=== PATIENT | male | born 1985 | race African-American/Black ===

== ENCOUNTER 2023-07-31 20:02 | Emergency (ER) | payer OTHER, SELFPAY ==
[2023-07-31 20:13] VITALS: BP 135/79; PULSE 91; RESP 17; TEMP 36.7; O2SAT 98; BMI 26.9
--- NOTE | 2023-07-31 20:18 | DI.RAD.S_ITS ---
PROCEDURE: XR ANKLE RT MIN 3V INDICATIONS: pain s/p fall TECHNIQUE: 3 views of the ankle were acquired. COMPARISON: None. FINDINGS: Bones: No fractures or dislocations. Ankle mortise is normally aligned. No suspicious bony lesions. Prominent superior projection of the distal dorsal aspect of the talus. Soft tissues: Moderate tibiotalar joint effusion. Achilles tendon appears normal. Moderate swelling about the ankle. IMPRESSION: Prominent superior projecting of the distal dorsal aspect of the talus. 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 Correlate with point tenderness. Dictated by: Bam Mason M.D. on 07/31/2023 at 20:46 Approved by: Bam Mason M.D. on 07/31/2023 at 20:49
--- NOTE | 2023-07-31 20:43 | PC.NURSE ---
Dr. Monson at bedside with pt
--- NOTE | 2023-07-31 20:50 | DI.RAD.S_ITS ---
PROCEDURE: XR FOOT RT MIN 3V INDICATIONS: dorsum of midfoot and base of 5th pain TECHNIQUE: 3 views of the foot were acquired. COMPARISON: [facility], [place], XR ANKLE RT MIN 3V, 07/31/2023, 20:20. FINDINGS: Bones: Avulsion fracture of the dorsal navicular bone. Talar beak. Fracture of the medial base of the cuboid bone. Soft tissues: Moderate tibiotalar joint effusion. Achilles tendon appears normal. Swelling of the hindfoot and midfoot. IMPRESSION: Avulsion fracture of the dorsal navicular bone. Fracture of the medial base of the cuboid bone. Please see ankle series for further discussion. Dictated by: Bam Mason M.D. on 07/31/2023 at 21:38 Approved by: Bam Mason M.D. on 07/31/2023 at 21:41
--- NOTE | 2023-07-31 20:50 | ED.LOWEXIN ---
HPI - Extremity Injury (Lower) General Chief Complaint: Extremity Injury, Lower Stated Complaint: Rt ankle injury Time Seen by Provider: 07/31/23 20:19 Source: patient Mode of arrival: Wheelchair History of Present Illness HPI Narrative: 37-year-old male here for evaluation of a right ankle injury. Patient states he was playing basketball prior to arrival. He states that he landed and rolled his ankle. Since that time has had pain and swelling on the outside of the ankle and the foot. Very difficult time bearing weight. No other injuries from the event. He is injured his ankle in the past but it was many years ago. No other injuries from the event. Related Data Allergies Allergy/AdvReac Type Severity Reaction Status Date / Time No Known Drug Allergies Allergy Verified 07/31/23 20:13 Review of Systems Constitutional Constitutional: Reports system reviewed and no additional complaints, except as documented Musculoskeletal Musculoskeletal: Reports system reviewed and no additional complaints, except as documented Integumentary/Breasts Skin/Breast: Reports system reviewed and no additional complaints, except as documented Neurologic Neurologic: Reports system reviewed and no additional complaints, except as documented Patient History Social History Smoking Status: Never smoker Smoking Status: Never smoker alcohol intake frequency: holidays/special occasions only Substance Use Type: does not use Exam Initial Vital Signs Initial Vital Signs: Vital Signs Temperature 98.1 F 07/31/23 20:13 Pulse Rate 91 H 07/31/23 20:13 Respiratory Rate 17 07/31/23 20:13 Blood Pressure 135/79 07/31/23 20:13 Pulse Oximetry 98 07/31/23 20:13 Oxygen Delivery Method Room Air 07/31/23 20:13 Cardio Pulses: dorsalis pedis present on the right Skin Other: Bruising to the dorsum and lateral aspect of the foot Neuro Sensory Exam: no sensory deficits noted Extrem Other: No proximal fibula tenderness. Does have tenderness along the lateral malleolus, the anterior tibiotalar joint tenderness along the dorsum of the midfoot and along the lateral aspect of the right mid foot. Achilles tendon is intact. Medial malleolus is unremarkable. Procedures Orthopedic Splinting/Casting Injury #1: Side: right Lower Extremity Injury Location: ankle and foot Lower Extremity Immobilizer: posterior splint Other Orthopedic Equipment: crutches Post splinting neuro exam: no change Post splinting vascular exam: no change Placed by: Nursing Course Orders Ordered: ED Orders 07/31/23 20:18 XR ankle RT min 3V Stat 07/31/23 20:50 XR foot RT min 3V Stat Discontinued Medications Hydrocodone Bitart/Acetaminophen (Hydrocodone/Acet 5/325 Prepack) 1 bottle MISC DIRECTED ONE Stop: 07/31/23 22:19 Last Admin: 07/31/23 22:24 Dose: 1 bottle Documented By: WONG Hydrocodone Bitart/Acetaminophen (Hydrocodone/Acet 5/325 Tablet) 1 tab PO NOW ONE Stop: 07/31/23 22:19 Last Admin: 07/31/23 22:24 Dose: 1 tab Documented By: WONG Vital Signs Vital signs: Vital Signs - 8 hr 07/31/23 20:13 Temperature 98.1 F Pulse Rate 91 H Respiratory Rate 17 Blood Pressure 135/79 Pulse Oximetry 98 Oxygen Delivery Method Room Air MDM - Extremity Injury (Lower) Imaging Data Extremity x-ray #1: Radiologist's Impression: PROCEDURE: XR ANKLE RT MIN 3V INDICATIONS: pain s/p fall TECHNIQUE: 3 views of the ankle were acquired. COMPARISON: None. FINDINGS: Bones: No fractures or dislocations. Ankle mortise is normally aligned. No suspicious bony lesions. Prominent superior projection of the distal dorsal aspect of the talus. Soft tissues: Moderate tibiotalar joint effusion. Achilles tendon appears normal. Moderate swelling about the ankle. IMPRESSION: Prominent superior projecting of the distal dorsal aspect of the talus. 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 Correlate with point tenderness. Extremity x-ray #2: Radiologist's Impression: PROCEDURE: XR FOOT RT MIN 3V INDICATIONS: dorsum of midfoot and base of 5th pain TECHNIQUE: 3 views of the foot were acquired. COMPARISON: [facility], , XR ANKLE RT MIN 3V, 07/31/2023, 20:20. FINDINGS: Bones: Avulsion fracture of the dorsal navicular bone. Talar beak. Fracture of the medial base of the cuboid bone. Soft tissues: Moderate tibiotalar joint effusion. Achilles tendon appears normal. Swelling of the hindfoot and midfoot. IMPRESSION: Avulsion fracture of the dorsal navicular bone. Fracture of the medial base of the cuboid bone. Please see ankle series for further discussion. MDM Narrative Medical decision making narrative: Unsure whether or not the avulsion fractures noted on the x-rays are new or old however he is tender over all these locations. Because of this he was placed in a posterior splint. Will make him nonweightbearing. He was given crutches. He was given the copies of the x-rays on a CD so that he can follow up with his medical department on the [facility]. He was given care instructions and return precautions. He expressed understanding and agreement with plan. Discharge Plan Departure Patient Disposition: Home Clinical Impression: Foot fracture, right Instructions: DI for Foot Fracture, How to Take Care of Your Splint Activity Restrictions/Additional Instructions: The splint should be treated like a cast. You need to keep it on and keep it clean and keep it dry. I recommend that tomorrow you contact your medical department as you were going to need follow-up with the orthopedic department on the [facility] in the next week. Use the crutches. Return to the emergency department for new symptoms. Referrals: ProviderKayla [Primary Care Provider] - Stand Alone Forms: Patient Portal/API, Work Release Note
--- NOTE | 2023-07-31 20:56 | PC.NURSE ---
x-ray at bedside
[2023-07-31] MEDS: HYDROCODONE/ACET 5/325 PREPACK 1 BOTTLE MISC (22:24)
[2023-07-31] MEDS: HYDROCODONE/ACET 5/325 TABLET 1 TAB PO (22:24)
== END 2023-07-31 22:43 | disposition home or self-care (01) ==
PROVIDERS: Emergency Provider Emergency Medicine
DX: S92.251A Displaced fracture of navicular [scaphoid] of right foot, initial encounter for closed fracture (principal); S92.211A Displaced fracture of cuboid bone of right foot, initial encounter for closed fracture; X50.1XXA Overexertion from prolonged static or awkward postures, initial encounter; Y93.67 Activity, basketball
CPT/HCPCS: 29515; 73610; 73630; 99283

== ENCOUNTER → 2024-07-31 13:28 | Outpatient (CLI) | payer OTHER, SELFPAY ==
--- NOTE | 2024-07-31 13:30 | DI.MRI.S_ITS ---
PROCEDURE: MR CHEST WO CON INDICATIONS: STRAIN OF MUSCLE/TENDON OF FRONT WALL OF THORAX TECHNIQUE: Axial and oblique coronal T1 spin echo and T2 spin echo with fat saturation, sagittal T1 spin echo and STIR acquired through the affected chest wall. COMPARISON: None. FINDINGS: Image quality: Images are degraded by extensive motion. Diagnostic information is obtained. Soft tissues: There is full-thickness tearing of the left pectoralis major tendon at the myotendinous junction estimated at 1.0 cm from the humeral insertion with retraction of the myotendinous junction by least 5.8 cm. Large collection of intervening fluid or involving [id number] hematoma is seen measuring up to 7.4 x 5.7 x 8.3 cm. A few lateral clavicular head fibers could remain in continuity. Deltoid insertion is intact. The remaining visualized muscles are well developed with normal internal signal. Intrathoracic structures are obscured by cardiac and respiratory motion, but no large pulmonary mass is seen. Bones: Visualized bony structures of the chest wall and upper arm appear intact, without focal marrow edema. IMPRESSION: Full-thickness complete or near complete tearing of the left pectoralis major tendon at the myotendinous junction with proximal retraction by approximately 5.8 cm. Large fluid collection at the site of the tear measures up to 8.3 cm. Approved by: Wil Sanchez M.D. on 07/31/2024 at 15:19
== END ==
PROVIDERS: Referring Provider Student in an Organized Health Care Education/Training Program; Visit Provider Student in an Organized Health Care Education/Training Program
DX: S29.011A Strain of muscle and tendon of front wall of thorax, initial encounter (principal); X58.XXXA Exposure to other specified factors, initial encounter
CPT/HCPCS: 71550